=== PATIENT | male | born 1985 | race Caucasian/White ===

== ENCOUNTER 2016-10-12 17:49 | Emergency (ER) | payer OTHER | END 2016-10-12 19:11 | disposition home or self-care (01) | LOC: ER1 17:49 | DX: S51.832A Puncture wound without foreign body of left forearm, initial encounter (principal); F17.210 Nicotine dependence, cigarettes, uncomplicated; W19.XXXA Unspecified fall, initial encounter | CPT/HCPCS: 73090; 90471; 90715; 96372; 99283; J1885 ==

== ENCOUNTER 2020-08-30 12:54 | Emergency (ER) | payer OTHER ==
[2020-08-30] MEDS ORDERED: CEPHALEXIN500 M1 PO (14:47)
[2020-08-30] MEDS ORDERED: BACTROBAN OINT22 GM EXT (14:47)
[2020-08-30] MEDS ORDERED: IBUPROFEN600 MG PO (14:47)
== END 2020-08-30 15:19 | disposition home or self-care (01) ==
LOC: ER1 12:54
DX: S91.311A Laceration without foreign body, right foot, initial encounter (principal); S80.01XA Contusion of right knee, initial encounter; F17.210 Nicotine dependence, cigarettes, uncomplicated; Z88.6 Allergy status to analgesic agent; Z23 Encounter for immunization; X08.8XXA Exposure to other specified smoke, fire and flames, initial encounter; Y92.410 Unspecified street and highway as the place of occurrence of the external cause
CPT/HCPCS: 73564; 73590; 73630; 90471; 90715; 99283

== ENCOUNTER 2021-07-30 19:16 | Emergency (ER) | payer OTHER ==
[~2021-07-30 19:16] MED LIST: BACTROBAN OINT22 GM EXT; CEPHALEXIN500 M1 PO; IBUPROFEN600 MG PO
[2021-07-30 20:04] LABS: HEMOGLOBIN 15.7 gm/dl (14.0-17.5); RED BLOOD COUNT 5.12 M/UL (4.20-5.50); WHITE BLOOD COUNT 14.9 K/UL (4.5-11.0)
[2021-07-30 20:31] LABS: BUN/CREATININE RATIO 21 (0-10)
[2021-07-31] MEDS ORDERED: BENZONATATE200 MG PO (03:34)
[2021-07-31] MEDS ORDERED: ZITHROMAX250 MG PO (03:34)
== END 2021-07-31 03:45 | disposition home or self-care (01) ==
LOC: ER1 19:16
PROVIDERS: Physician Assistant
DX: R06.02 Shortness of breath (principal); R05.9 Cough, unspecified; F17.210 Nicotine dependence, cigarettes, uncomplicated; Z20.822 Contact with and (suspected) exposure to COVID-19
CPT/HCPCS: 0240U; 71045; 80053; 82550; 82553; 83874; 83880; 84484; 85025; 85379; 85610; 85730; 93005; 99285; Q9967

== ENCOUNTER 2021-10-23 18:24 | Emergency (ER) | payer OTHER ==
[~2021-10-23 18:24] MED LIST changes: +BENZONATATE200 MG PO; +ZITHROMAX250 MG PO
[2021-10-23 19:36] LABS: HEMOGLOBIN 15.4 gm/dl (14.0-17.5); RED BLOOD COUNT 5.04 M/UL (4.20-5.50); WHITE BLOOD COUNT 9.4 K/UL (4.5-11.0)
[2021-10-23 19:58] LABS: BUN/CREATININE RATIO 22 (0-10)
[2021-10-23] MEDS ORDERED: CEPHALEXIN500 M1 PO (20:03)
[2021-10-23] MEDS ORDERED: BACTRIM DS TAB1 EACH PO (20:03)
== END 2021-10-23 20:24 | disposition home or self-care (01) ==
LOC: ER1 18:24
PROVIDERS: Nurse Practitioner
DX: T81.49XA Infection following a procedure, other surgical site, initial encounter (principal)
CPT/HCPCS: 73590; 80053; 83605; 85025; 85652; 86140; 87040; 87070; 87077; 87186; 87205; 96365; 96366; 96375; 99284; J0690; J1885

== ENCOUNTER 2021-12-21 14:54 | Emergency (ER) | payer OTHER ==
[~2021-12-21 14:54] MED LIST changes: +BACTRIM DS TAB1 EACH PO
[2021-12-21] MEDS ORDERED: IBUPROFEN600 MG PO (18:32)
== END 2021-12-21 19:01 | disposition home or self-care (01) ==
LOC: ER1 14:54
DX: S69.91XA Unspecified injury of right wrist, hand and finger(s), initial encounter (principal); F17.200 Nicotine dependence, unspecified, uncomplicated; W01.0XXA Fall on same level from slipping, tripping and stumbling without subsequent striking against object, initial encounter; Y92.828 Other wilderness area as the place of occurrence of the external cause
CPT/HCPCS: 73130; 99283